=== PATIENT | male | born 1990 | race African-American/Black ===

== ENCOUNTER 2016-12-03 14:59 | Emergency (ER) | payer BC ==
[~2016-12-03] VITALS: Ht 172.7 cm; Wt 125.6 kg
--- NOTE | 2016-12-03 16:42 | REP ---
Clinical: Chest pain . Comparison: None . Technique: PA and lateral. Findings: The mediastinum and cardiac silhouette are normal. The lung seg[place] are clear and without acute consolidation, effusion, or pneumothorax. The skeletal structures are intact and normal. Impression: 1. No acute cardiopulmonary process. Signed by Tyrone Hong MD 12/03/2016 04:34 P
[2016-12-03 16:45] LABS: ALBUMIN 3.5 GM/DL (3.2-5.2); ALKALINE PHOSPHATASE 72 U/L (45-117); ALT/SGPT 24 U/L (12-78); ANION GAP 5 MEQ/L (8-16); AST/SGOT 12 U/L (15-37); BILIRUBIN,DIRECT < 0.1 MG/DL (0.0-0.2); BILIRUBIN,TOTAL 0.2 MG/DL (0.2-1.0); BLOOD UREA NITROGEN 21 MG/DL (7-18); CALCIUM LEVEL 8.6 MG/DL (8.5-10.1); CARBON DIOXIDE LEVEL 25 MEQ/L (21-32); CHLORIDE LEVEL 112 MEQ/L (98-107); CREATININE FOR GFR 0.88 MG/DL (0.70-1.30); GLOMERULAR FILTRATION RATE > 60.0 (>60); GLUCOSE, FASTING 109 MG/DL (70-105); POTASSIUM SERUM 3.8 MEQ/L (3.5-5.1); SODIUM LEVEL 142 MEQ/L (136-145)
[2016-12-03 16:49] LABS: BASO % 0.2 % (0.0-1.0); EOS % 0.4 % (0.0-3.0); LARGE UNSTAINED CELL # 0.1 K/mm3 (0.0-0.4); LARGE UNSTAINED CELL % 1.2 % (0.0-4.0); LYMPH # 1.4 K/mm3 (1.5-6.5); MEAN CORPUSCULAR HGB CONC 32.3 g/dl (32.0-36.5); MEAN CORPUSCULAR VOLUME 83.6 fl (80.0-96.0); MONO # 0.5 K/mm3 (0.0-0.8); MONO % 5.5 % (0.0-5.0); NEUTROPHILS # 6.8 K/mm3 (1.8-7.7); NEUTROPHILS % 77.7 % (36.0-66.0); PLATELET COUNT, AUTOMATED 221 k/mm3 (150-450); RED CELL DISTRIBUTION WIDTH 13.2 % (11.5-14.5); WHITE BLOOD COUNT 8.8 K/mm3 (4.0-10.0)
[2016-12-03 17:43] VITALS: BP 127/63
[2016-12-03] MEDS ORDERED: ALPRAZolam 0.25 MG TAB PO ONE (17:45)
--- NOTE | 2016-12-04 07:20 | ECGEPIP ---
Stationary ECG Study [facility] - ED Test Date: 2016-12-03 Pat Name: MILTON HUTCHINSON Department: Room: - Gender: M Mortgage Collector: LAURENCE : 1990 Requested By: Reilly Guzmán Order Number: [id number] Reading MD: Reilly Kearns Measurements Intervals [place] Rate: 126 P: 62 CT: 156 QRS: 20 QRSD: 100 T: 53 QT: 276 QTc: 401 Interpretive Statements SINUS TACHYCARDIA NO PRIORS Electronically Signed On 12-04-2016 7:20:36 EDT by Reilly Kearns
== END 2016-12-03 17:57 | disposition home or self-care (01) ==
LOC: M ED 16:29
DX: F45.0 Somatization disorder (principal); R00.0 Tachycardia, unspecified

== ENCOUNTER → 2016-12-05 | Outpatient (REF) | payer BC ==
[2016-12-05 18:22] LABS: PERCENT SATURATION 11.7 % (19.7-37.4); TOTAL IRON BINDING CAPACITY 428 UG/DL (250-450)
[2016-12-05 19:19] LABS: RETIC HEMOGLOBIN CONTENT CHr 29.7 PG (24-36); RETICULOCYTE % ADVIA2120 2.3 % (0.5-1.5)
== END ==
LOC: M SFHCPLAZ 15:33
PROVIDERS: ATTEND Family Medicine
DX: Z00.00 Encounter for general adult medical examination without abnormal findings (principal); D50.9 Iron deficiency anemia, unspecified; F41.1 Generalized anxiety disorder

== ENCOUNTER → 2017-01-15 | Outpatient (CLI) | payer BC ==
[~2017-01-15] MED LIST: DOCU100C16 PO; ESCI10TA2 PO; FERR325T16 PO; VICT18IN SC
== END ==
LOC: M LAB 14:53
PROVIDERS: ATTEND Physician Assistant
DX: E55.9 Vitamin D deficiency, unspecified (principal)

== ENCOUNTER → 2017-01-16 | Outpatient (REF) | payer BC ==
[2017-01-16 15:24] LABS: BASO % 0.4 % (0.0-1.0); EOS # 0.1 K/mm3 (0.0-0.50); EOS % 1.3 % (0.0-3.0); LARGE UNSTAINED CELL # 0.1 K/mm3 (0.0-0.4); LARGE UNSTAINED CELL % 1.4 % (0.0-4.0); LYMPH % 22.2 % (24.0-44.0); MEAN CORPUSCULAR HEMOGLOBIN 27.6 pg (27.0-33.0); MEAN CORPUSCULAR HGB CONC 32.2 g/dl (32.0-36.5); MEAN CORPUSCULAR VOLUME 85.8 fl (80.0-96.0); MONO # 0.6 K/mm3 (0.0-0.8); MONO % 6.6 % (0.0-5.0); NEUTROPHILS # 5.9 K/mm3 (1.8-7.7); NEUTROPHILS % 68.1 % (36.0-66.0); PLATELET COUNT, AUTOMATED 229 k/mm3 (150-450); RED CELL DISTRIBUTION WIDTH 13.5 % (11.5-14.5); WHITE BLOOD COUNT 8.7 K/mm3 (4.0-10.0)
[2017-01-16 16:27] LABS: REASON FOR REVIEW COMPREHENSIVE REVIEW
== END ==
LOC: M SFHCPLAZ 12:31
PROVIDERS: ATTEND Family Medicine
DX: D50.9 Iron deficiency anemia, unspecified (principal)

== ENCOUNTER → 2017-02-13 | Outpatient (REF) | payer BC ==
[2017-02-13 16:59] LABS: BASO % 0.4 % (0.0-1.0); EOS # 0.1 K/mm3 (0.0-0.50); EOS % 0.6 % (0.0-3.0); LARGE UNSTAINED CELL # 0.1 K/mm3 (0.0-0.4); LARGE UNSTAINED CELL % 1.4 % (0.0-4.0); LYMPH # 2.6 K/mm3 (1.5-6.5); MEAN CORPUSCULAR HEMOGLOBIN 26.8 pg (27.0-33.0); MEAN CORPUSCULAR HGB CONC 31.6 g/dl (32.0-36.5); MEAN CORPUSCULAR VOLUME 84.8 fl (80.0-96.0); MONO # 0.7 K/mm3 (0.0-0.8); MONO % 6.6 % (0.0-5.0); PLATELET COUNT, AUTOMATED 225 k/mm3 (150-450); RED CELL DISTRIBUTION WIDTH 13.6 % (11.5-14.5); RETIC HEMOGLOBIN CONTENT CHr 29.3 PG (24-36); RETICULOCYTE ABSOLUTE ADVIA212 91 x10(9)/L (17-77); WHITE BLOOD COUNT 10.4 K/mm3 (4.0-10.0)
== END ==
LOC: M SFHCPLAZ 11:49
PROVIDERS: ATTEND Family Medicine
DX: D50.9 Iron deficiency anemia, unspecified (principal)

== ENCOUNTER 2017-04-30 08:49 | Day surgery (SDC) | payer BC ==
[~2017-04-30] VITALS: Ht 172.7 cm; Wt 125.6 kg
[~2017-04-30 08:49] MED LIST changes: +LIDOCAINE 2% INJ 100 MG/5 ML SDV (FOR ANES.) As Ordered ONE; +PROPOFOL 200 MG/20 ML VIAL As Ordered ONE
[2017-04-30] MEDS ORDERED: NS 1,000 ML IV SCH (09:45)
--- NOTE | 2017-04-30 11:30 | ROOR ---
Patient Name: Emmanuel Van Procedure Date: 04/30/2017 10:42 AM Date of : 1990 Age: 26 Room: [facility] Gender: Male Note Status: Finalized Procedure: Upper GI endoscopy Indications: Iron deficiency anemia, Functional Dyspepsia Providers: Tyler Torres MD Referring MD: Aroldo Castro MD Requesting Provider: Medicines: Monitored Anesthesia Care Complications: No immediate complications. Procedure: Pre-Anesthesia Assessment: - Prior to the procedure, a History and Physical was performed, and patient medications and allergies were reviewed. The patient is competent. The risks and benefits of the procedure and the sedation options and risks were discussed with the patient. All questions were answered and informed consent was obtained. Patient identification and proposed procedure were verified by the physician, the nurse and the action installer in the procedure room. Mental Status Examination: alert and oriented. Airway Examination: normal oropharyngeal airway and neck mobility. Respiratory Examination: clear to auscultation. CV Examination: normal. Prophylactic Antibiotics: The patient does not require prophylactic antibiotics. Prior Anticoagulants: The patient has taken no previous anticoagulant or antiplatelet agents. ASA Grade Assessment: III - A patient with severe systemic disease. After reviewing the risks and benefits, the patient was deemed in satisfactory condition to undergo the procedure. The anesthesia plan was to use monitored anesthesia care (MAC). Immediately prior to administration of medications, the patient was re-assessed for adequacy to receive sedatives. The heart rate, respiratory rate, oxygen saturations, blood pressure, adequacy of pulmonary ventilation, and response to care were monitored throughout the procedure. The physical status of the patient was re-assessed after the procedure. The Endoscope was introduced through the mouth, and advanced to the second part of duodenum. The upper GI endoscopy was accomplished without difficulty. The patient poorly tolerated anesthesia, leading to fluctuating saturations, cough, excessive oral secreations - this limited detaild biopsies and exam of upper GI. Findings: A small hiatal hernia was present. LA Grade B (one or more mucosal breaks greater than 5 mm, not extending between the tops of two mucosal folds) esophagitis was found at the gastroesophageal junction. Biopsies were taken with a cold forceps for histology. Verification of patient identification for the specimen was done by the physician and nurse using the patient's name, date and medical record number. Estimated blood loss was minimal. The entire examined stomach was normal. The duodenal bulb and second portion of the duodenum were normal. Biopsies for histology were taken with a cold forceps for evaluation of celiac disease. Impression: - Small hiatal hernia. - LA Grade B reflux esophagitis. Biopsied. - Normal stomach. - Normal duodenal bulb and second portion of the duodenum. Biopsied. Recommendation: - Patient has a contact number available for emergencies. The signs and symptoms of potential delayed complications were discussed with the patient. Return to normal activities tomorrow. Written discharge instructions were provided to the patient. - Resume previous diet. - Continue present medications. - Await pathology results. - Repeat upper endoscopy in 3 months for surveillance based on pathology results. - Return to GI clinic as previously scheduled on 05/29/2017 at 9:00 AM. - Return to primary care physician. Tyler Torres MD Tyler Torres MD 04/30/2017 11:30:12 AM This report has been signed electronically. Number of Addenda: 0 Note Initiated On: 04/30/2017 10:42 AM Estimated Blood Loss: Estimated blood loss was minimal.
--- NOTE | 2017-04-30 11:34 | ROOR ---
Patient Name: Emmanuel Van Procedure Date: 04/30/2017 10:43 AM Date of : 1990 Age: 26 Room: [facility] Gender: Male Note Status: Finalized Procedure: Colonoscopy Indications: Hematochezia, Iron deficiency anemia Providers: Tyler Torres MD Referring MD: Aroldo Castro MD Requesting Provider: Medicines: Monitored Anesthesia Care Complications: No immediate complications. Procedure: Pre-Anesthesia Assessment: - Prior to the procedure, a History and Physical was performed, and patient medications and allergies were reviewed. The patient is competent. The risks and benefits of the procedure and the sedation options and risks were discussed with the patient. All questions were answered and informed consent was obtained. Patient identification and proposed procedure were verified by the physician, the nurse and the anesthesiologist in the procedure room. Mental Status Examination: alert and oriented. Airway Examination: normal oropharyngeal airway and neck mobility. Respiratory Examination: clear to auscultation. CV Examination: normal. Prophylactic Antibiotics: The patient does not require prophylactic antibiotics. Prior Anticoagulants: The patient has taken no previous anticoagulant or antiplatelet agents. ASA Grade Assessment: III - A patient with severe systemic disease. After reviewing the risks and benefits, the patient was deemed in satisfactory condition to undergo the procedure. The anesthesia plan was to use monitored anesthesia care (MAC). Immediately prior to administration of medications, the patient was re-assessed for adequacy to receive sedatives. The heart rate, respiratory rate, oxygen saturations, blood pressure, adequacy of pulmonary ventilation, and response to care were monitored throughout the procedure. The physical status of the patient was re-assessed after the procedure. The Colonoscope was introduced through the anus and advanced to the cecum, identified by appendiceal orifice and ileocecal valve. The colonoscopy was performed without difficulty. The patient poorly tolerated anesthesia, leading to fluctuating saturations, cough, excessive oral secreations - this limited detailed exam and biopsies in upper GI endoscopy. The quality of the bowel preparation was good. The ileocecal valve, appendiceal orifice, and rectum were photographed. Scope insertion time was 3 minutes. Scope withdrawal time was 9 minutes. The total duration of the procedure was 15 minutes. Findings: The perianal and digital rectal examinations were normal. Non-bleeding external and internal hemorrhoids were found during retroflexion. The hemorrhoids were medium-sized. The exam was otherwise without abnormality on direct and retroflexion views. Impression: - Non-bleeding external and internal hemorrhoids. - The examination was otherwise normal on direct and retroflexion views. - No specimens collected. Recommendation: - Patient has a contact number available for emergencies. The signs and symptoms of potential delayed complications were discussed with the patient. Return to normal activities tomorrow. Written discharge instructions were provided to the patient. - Resume previous diet. - Continue present medications. - Preparation H ointment: Apply externally daily for 7 days. - Repeat colonoscopy at age 51 for screening purposes. - Return to GI clinic as previously scheduled on 05/29/2017 at 9:00 AM. - Return to primary care physician. Tyler Torres MD Tyler Torres MD 04/30/2017 11:33:48 AM This report has been signed electronically. Number of Addenda: 0 Note Initiated On: 04/30/2017 10:43 AM Estimated Blood Loss: Estimated blood loss was minimal.
[2017-04-30] MEDS ORDERED: PROPOFOL 200 MG/20 ML VIAL As Ordered ONE (11:47)
[2017-04-30 11:55] VITALS: BP 138/87
== END 2017-04-30 12:25 | disposition home or self-care (01) ==
LOC: M OPP 08:49 → EDSTATUS 10:05 → M OPP 12:25
PROVIDERS: ATTEND Internal Medicine Gastroenterology
DX: D50.9 Iron deficiency anemia, unspecified (principal); K62.5 Hemorrhage of anus and rectum; K30 Functional dyspepsia; K21.0 Gastro-esophageal reflux disease with esophagitis; I10 Essential (primary) hypertension; K64.8 Other hemorrhoids; Z80.0 Family history of malignant neoplasm of digestive organs; Z79.899 Other long term (current) drug therapy